=== PATIENT | male | born 1985 | race Caucasian/White ===

== ENCOUNTER → 2017-07-07 | Outpatient (CLI) | payer BC | LOC: MRI 11:12 | DX: S92.002A Unspecified fracture of left calcaneus, initial encounter for closed fracture (principal); L03.116 Cellulitis of left lower limb; L97.428 Non-pressure chronic ulcer of left heel and midfoot with other specified severity; W19.XXXA Unspecified fall, initial encounter; Y93.89 Activity, other specified; Y92.89 Other specified places as the place of occurrence of the external cause; Y99.8 Other external cause status ==